=== PATIENT | female | born 1960 | race Caucasian/White ===

== ENCOUNTER 2016-11-10 15:14 | Emergency (ER) | payer OTHER ==
--- NOTE | 2016-11-10 15:27 | ED CLINICAL REPORT ---
Clinical Report - Physicians/Mid Levels [facility] [address] [place] [address] 11/10/2016 15:15 Patient: TASH REYNOSO Time Seen: 1515; initial patient contact, initial documentation, patient care assumed. Arrived- By private vehicle. Historian- patient. HISTORY OF PRESENT ILLNESS Chief Complaint: ABDOMINAL PAIN. At its maximum, severity described as severe. When seen in the E.D., severity described as severe. It is described as "pain" and it is described as located in the right upper quadrant, right abdomen and right lower quadrant and radiating to the right hip and thigh. This started years ago and is still present. No nausea, loss of appetite, vomiting or diarrhea. No recent travel. Similar symptoms previously: Chronically, as bad. Recent medical care: The patient was seen recently at another facility in the emergency department. ( was seen at [facility] this [place], dc from there around [id number], used [employer] to get home, went home, didn't take any of her meds, called 911 and now back for abd pain). REVIEW OF SYSTEMS No constipation, black stools, hematemesis, difficulty with urination or pain with urination. No urinary frequency, bloody stools or fever. All systems otherwise negative, except as recorded above. PAST HISTORY See nurses notes. PROBLEMS: Seizures . Blood clots. Sroke . --15:29 Nica Mclaughlin RMaryanne. ADDITIONAL SURGERIES: IVC filter for clots . --15:29 Nica Mclaughlin RMaryanne. SOCIAL HISTORY Smoker - current status unknown. No alcohol use or drug use. No recent travel. Is a local resident. FAMILY HISTORY Negative. ADDITIONAL NOTES The nursing notes have been reviewed with agreement regarding the chief complaint, HPI, ROS, PMH and patient medications and allergies. PHYSICAL EXAM Appearance: Alert. Oriented X3. No acute distress. Eyes: Pupils equal, round and reactive to light. Eyes normal inspection. Neck: Normal inspection. Neck supple. CVS: Normal heart rate and rhythm. Heart sounds normal. Pulses normal. Respiratory: No respiratory distress. Breath sounds normal. Chest nontender. Abdomen: Soft and nontender. Bowel sounds normal. No organomegaly. No mass. Back: Normal inspection. Skin: Skin warm and dry. Normal skin color. No rash. Normal skin turgor. Extremities: Extremities exhibit normal ROM. No lower extremity edema. Neuro: Oriented X 3. No motor deficit. No sensory deficit. PROGRESS AND PROCEDURES Course of Care: pt has her papers from [facility] with her, full work done, including labs and ct, has appt 11/12 with pcp for f/u 15:46 11/10/16. pt has hermes for frequent large doses of narcs, see report for full details, last rx 11/02 #84 hydrocodone 7.5mg. Patient counseled in person regarding the patient's stable condition and diagnosis. 15:26. Differential Diagnosis: I considered gastritis, gastroenteritis, peptic ulcer disease, acute appendicitis, diverticulitis, colon cancer, adhesions, biliary colic, cholecystitis, cholelithiasis, hepatitis, pancreatitis, urinary tract infection, ureterolithiasis and viral syndrome as a possible cause of abdominal pain in this patient. This is a partial list of diagnoses considered. (substance abuse, chronic abd pain). Above considerations are based on history and physical exam. Differential diagnosis was discussed with patient. Disposition: Discharged home in good and unchanged condition (15:26). Condition: good and stable. CLINICAL IMPRESSION Chronic generalized abdominal pain of undetermined cause. INSTRUCTIONS Warnings: GENERAL WARNINGS: Return or contact your physician immediately if your condition worsens or changes unexpectedly, if not improving as expected, or if other problems arise. SPECIFICALLY, return if you develop pain in the abdomen or pelvis, fever, the inability to keep fluids down, blood in vomitus, blood in diarrhea, fainting or lightheadedness. Follow-up: Follow up with your doctor Tuesday as scheduled even if well. Summary of care provided to patient. Understanding of the discharge instructions verbalized by patient. (Electronically signed by Giovanna Mccarthy A.R.N.P. 11/10/2016 17:47)
--- NOTE | 2016-11-10 15:27 | ED CLINICAL REPORT ---
Clinical Report - Physicians/Mid Levels [facility] [address] [place] [address] 11/10/2016 15:15 Patient: TASH REYNOSO Time Seen: 1515; initial patient contact, initial documentation, patient care assumed. Arrived- By private vehicle. Historian- patient. HISTORY OF PRESENT ILLNESS Chief Complaint: ABDOMINAL PAIN. At its maximum, severity described as severe. When seen in the E.D., severity described as severe. It is described as "pain" and it is described as located in the right upper quadrant, right abdomen and right lower quadrant and radiating to the right hip and thigh. This started years ago and is still present. No nausea, loss of appetite, vomiting or diarrhea. No recent travel. Similar symptoms previously: Chronically, as bad. Recent medical care: The patient was seen recently at another facility in the emergency department. ( was seen at [facility] this [place], dc from there around [id number], used [employer] to get home, went home, didn't take any of her meds, called 911 and now back for abd pain). REVIEW OF SYSTEMS No constipation, black stools, hematemesis, difficulty with urination or pain with urination. No urinary frequency, bloody stools or fever. All systems otherwise negative, except as recorded above. PAST HISTORY See nurses notes. PROBLEMS: Seizures . Blood clots. Sroke . --15:29 Nica Mclaughlin RMaryanne. ADDITIONAL SURGERIES: IVC filter for clots . --15:29 Nica Mclaughlin RMaryanne. SOCIAL HISTORY Smoker - current status unknown. No alcohol use or drug use. No recent travel. Is a local resident. FAMILY HISTORY Negative. ADDITIONAL NOTES The nursing notes have been reviewed with agreement regarding the chief complaint, HPI, ROS, PMH and patient medications and allergies. PHYSICAL EXAM Appearance: Alert. Oriented X3. No acute distress. Eyes: Pupils equal, round and reactive to light. Eyes normal inspection. Neck: Normal inspection. Neck supple. CVS: Normal heart rate and rhythm. Heart sounds normal. Pulses normal. Respiratory: No respiratory distress. Breath sounds normal. Chest nontender. Abdomen: Soft and nontender. Bowel sounds normal. No organomegaly. No mass. Back: Normal inspection. Skin: Skin warm and dry. Normal skin color. No rash. Normal skin turgor. Extremities: Extremities exhibit normal ROM. No lower extremity edema. Neuro: Oriented X 3. No motor deficit. No sensory deficit. PROGRESS AND PROCEDURES Course of Care: pt has her papers from [employer] with her, full work done, including labs and ct, has appt 11/12 with pcp for f/u 15:46 11/10/16. pt has hermes for frequent large doses of narcs, see report for full details, last rx 11/02 #84 hydrocodone 7.5mg. Patient counseled in person regarding the patient's stable condition and diagnosis. 15:26. Differential Diagnosis: I considered gastritis, gastroenteritis, peptic ulcer disease, acute appendicitis, diverticulitis, colon cancer, adhesions, biliary colic, cholecystitis, cholelithiasis, hepatitis, pancreatitis, urinary tract infection, ureterolithiasis and viral syndrome as a possible cause of abdominal pain in this patient. This is a partial list of diagnoses considered. (substance abuse, chronic abd pain). Above considerations are based on history and physical exam. Differential diagnosis was discussed with patient. Disposition: Discharged home in good and unchanged condition (15:26). Condition: good and stable. CLINICAL IMPRESSION Chronic generalized abdominal pain of undetermined cause. INSTRUCTIONS Warnings: GENERAL WARNINGS: Return or contact your physician immediately if your condition worsens or changes unexpectedly, if not improving as expected, or if other problems arise. SPECIFICALLY, return if you develop pain in the abdomen or pelvis, fever, the inability to keep fluids down, blood in vomitus, blood in diarrhea, fainting or lightheadedness. Follow-up: Follow up with your doctor Tuesday as scheduled even if well. Summary of care provided to patient. Understanding of the discharge instructions verbalized by patient. (Electronically signed by Giovanna Mccarthy A.R.N.P. 11/10/2016 17:47)
--- NOTE | 2016-11-10 15:27 | ED NURSING NOTES ---
Clinical Report - Nurses [place] [address] [place] [address] 11/10/2016 15:15 Patient: TASH REYNOSO TRIAGE Triage time 1500. Acuity: LEVEL 3. Chief Complaint: ABDOMINAL PAIN and (PAIN IN LT LOWER LEG AND UNABLE TO MOVE RT LEG.). Alert. No acute distress. SEPSIS SCREEN: Sepsis Screen: negative. Negative (no infection suspected/documented). ENRIQUE COMA SCORE: Enrique Coma Scale: 15- eyes open spontaneously (4); best verbal response- oriented x 4 (5); best motor response- obeys commands (6). --15:34 Nica Mclaughlin R.N. 15:11 11/10/16. BP: 133/74. HR: 70. RR: 20. O2 saturation: 98% on room air. Temp: 98.4 F. Pain level now: 06/16. --15:34 Nica Mclaughlin R.N. Weight: 104.7 kg stated. Height/Length: 67 inches Per Patient. BMI: 36.2. --15:33 Nica Mclaughlin R.N. Medications Atorvastatin Calcium Oral 40 mg, daily. --15:15 Nica Mclaughlin R.N. Cholecalciferol Oral (Tablet 1000 unit) 1 tablet, day. --15:15 Nica Mclaughlin R.N. Docusate Sodium Oral, day. --15:17 Nica Mclaughlin R.N. Fish oil 1000mg day. --15:18 Nica Mclaughlin R.N. Furosemide Oral 20 mg, daily. --15:20 Nica Mclaughlin R.N. Hydrocodone-Acetaminophen Oral 5 mg, as needed. --15:21 Nica Mclaughlin R.N. LamoTRIgine Oral (Tablet Dispersible 100 mg) 2 tablets, bid . --15:21 Nica Mclaughlin R.N. LevETIRAcetam Oral 500 mg x 3 tabs , 2x a day. --15:22 Nica Mclaughlin R.N. Lidocaine patches 4 % to knee . --15:23 Nica Mclaughlin R.N. Imodium 2 caps after diarrhea stool . --15:23 Nica Mclaughlin R.N. Loratadine Oral 10mg day . --15:24 Nica Mclaughlin R.N. LORazepam Oral 0.5 mg, 3x a day. --15:24 Nica Mclaughlin R.N. Magnesium oxide 400mg day. --15:24 Nica Mclaughlin R.N. Miralax prn. --15:25 Nica Mclaughlin R.N. Potassium Chloride Oral 10 meq, daily. --15:25 Nica Mclaughlin R.N. Senna Oral (Tablet 8.6 mg) 1 tablet, day. --15:26 Nica Mclaughlin R.N. Sertraline HCl Oral (Tablet 50 mg) 2 tablets, daily. --15:26 Nica Mclaughlin R.N. Tamsulosin HCl Oral 0.4 mg, daily. --15:27 Nica Mclaughlin R.N. TraZODone HCl Oral 50 mg, daily. --15:27 Nica Mclaughlin R.N. Warfarin 5mg day . --15:27 Nica Mclaughlin R.N. Medication/allergy information source: the patient. --15:34 Nica Mclaughlin R.N. Allergies No Known Drug Allergy. --15:27 Nica Mclaughlin R.N. History Arrived by EMS. Historian: patient. Primary physician (GREY). This started today. Onset. (Dc from [place] this am.). She has had abdominal pain. 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 PAST MEDICAL HX: Immunizations: status is unknown. Last normal menstrual period unknown. SOCIAL HX: No alcohol use or drug use. FALL RISK ASSESSMENT: Fall risk assessment completed. No fall risk identified. NUTRITIONAL RISK ASSESSMENT: The nutritional risk assessment revealed no deficiencies. FUNCTIONAL ASSESSMENT: Functional assessment: no impairments noted. LEARNING NEEDS ASSESSMENT: The learning needs assessment revealed no barriers. SKIN INTEGRITY ASSESSMENT: Skin integrity risk assessment completed. No skin integrity risk identified. --15:34 Nica Mclaughlin R.N. PROBLEMS: Seizures . Blood clots. Sroke . --15:29 Nica Mclaughlin R.N. ADDITIONAL SURGERIES: IVC filter for clots . --15:29 Nica Mclaughlin R.N. Interventions ID band on patient. To room. --15:34 Nica Mclaughlin R.N. PHYSICAL ASSESSMENT To room via stretcher. Patient gowned. GENERAL / NEURO / PSYCH: Alert. Oriented X 4. Appears in no acute distress. Appears anxious. HEENT: Mucous membranes are pink. RESPIRATORY: Respirations not labored. CVS: Capillary refill less than 2 seconds. GI / : Abdominal tenderness in the right lower quadrant. SKIN: Skin is warm and dry. --15:34 Nica Mclaughlin R.N. NURSING PROGRESS NOTES Patient gowned. Head of bed elevated. Two patient identifiers checked. Call light placed in reach. Side rails up x 2. Bed placed in lowest position. Brakes of bed on. Patient ready for evaluation. --15:34 Nica Mclaughlin R.N. DISPOSITION / DISCHARGE 16:00. Condition at departure: improved. No learning barriers present. Discharge instructions provided and reviewed with the patient. Patient verbalized understanding. Written instructions provided in Luxembourgish. The patient was discharged home and accompanied by metabolic specialist. She left the Emergency Department in a wheelchair and via (Patient to call [employer] link). Medication list reviewed and validated. --16:48 Nica Mclaughlin R.N. 15:11 11/10/16. BP: 133/74. HR: 70. RR: 20. O2 saturation: 98% on room air. Temp: 98.4 F. Pain level now: 8/10. --16:48 Nica Mclaughlin R.N. Locked/Released at 11/10/2016 16:49 by Nica Mclaughlin R.N.
--- NOTE | 2016-11-10 15:27 | ED NURSING NOTES ---
Clinical Report - Nurses [place] [address] [place] [address] 11/10/2016 15:15 Patient: TASH REYNOSO TRIAGE Triage time 1500. Acuity: LEVEL 3. Chief Complaint: ABDOMINAL PAIN and (PAIN IN LT LOWER LEG AND UNABLE TO MOVE RT LEG.). Alert. No acute distress. SEPSIS SCREEN: Sepsis Screen: negative. Negative (no infection suspected/documented). ENRIQUE COMA SCORE: Enrique Coma Scale: 15- eyes open spontaneously (4); best verbal response- oriented x 4 (5); best motor response- obeys commands (6). --15:34 Nica Mclaughlin R.N. 15:11 11/10/16. BP: 133/74. HR: 70. RR: 20. O2 saturation: 98% on room air. Temp: 98.4 F. Pain level now: 06/16. --15:34 Nica Mclaughlin R.N. Weight: 104.7 kg stated. Height/Length: 67 inches Per Patient. BMI: 36.2. --15:33 Nica Mclaughlin R.N. Medications Atorvastatin Calcium Oral 40 mg, daily. --15:15 Nica Mclaughlin R.N. Cholecalciferol Oral (Tablet 1000 unit) 1 tablet, day. --15:15 Nica Mclaughlin R.N. Docusate Sodium Oral, day. --15:17 Nica Mclaughlin R.N. Fish oil 1000mg day. --15:18 Nica Mclaughlin R.N. Furosemide Oral 20 mg, daily. --15:20 Nica Mclaughlin R.N. Hydrocodone-Acetaminophen Oral 5 mg, as needed. --15:21 Nica Mclaughlin R.N. LamoTRIgine Oral (Tablet Dispersible 100 mg) 2 tablets, bid . --15:21 Nica Mclaughlin R.N. LevETIRAcetam Oral 500 mg x 3 tabs , 2x a day. --15:22 Nica Mclaughlin R.N. Lidocaine patches 4 % to knee . --15:23 Nica Mclaughlin R.N. Imodium 2 caps after diarrhea stool . --15:23 Nica Mclaughlin R.N. Loratadine Oral 10mg day . --15:24 Nica Mclaughlin R.N. LORazepam Oral 0.5 mg, 3x a day. --15:24 Nica Mclaughlin R.N. Magnesium oxide 400mg day. --15:24 Nica Mclaughlin R.N. Miralax prn. --15:25 Nica Mclaughlin R.N. Potassium Chloride Oral 10 meq, daily. --15:25 Nica Mclaughlin R.N. Senna Oral (Tablet 8.6 mg) 1 tablet, day. --15:26 Nica Mclaughlin R.N. Sertraline HCl Oral (Tablet 50 mg) 2 tablets, daily. --15:26 Nica Mclaughlin R.N. Tamsulosin HCl Oral 0.4 mg, daily. --15:27 Nica Mclaughlin R.N. TraZODone HCl Oral 50 mg, daily. --15:27 Nica Mclaughlin R.N. Warfarin 5mg day . --15:27 Nica Mclaughlin R.N. Medication/allergy information source: the patient. --15:34 Nica Mclaughlin R.N. Allergies No Known Drug Allergy. --15:27 Nica Mclaughlin R.N. History Arrived by EMS. Historian: patient. Primary physician (GREY). This started today. Onset. (Dc from [place] this am.). She has had abdominal pain. 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 PAST MEDICAL HX: Immunizations: status is unknown. Last normal menstrual period unknown. SOCIAL HX: No alcohol use or drug use. FALL RISK ASSESSMENT: Fall risk assessment completed. No fall risk identified. NUTRITIONAL RISK ASSESSMENT: The nutritional risk assessment revealed no deficiencies. FUNCTIONAL ASSESSMENT: Functional assessment: no impairments noted. LEARNING NEEDS ASSESSMENT: The learning needs assessment revealed no barriers. SKIN INTEGRITY ASSESSMENT: Skin integrity risk assessment completed. No skin integrity risk identified. --15:34 Nica Mclaughlin R.N. PROBLEMS: Seizures . Blood clots. Sroke . --15:29 Nica Mclaughlin R.N. ADDITIONAL SURGERIES: IVC filter for clots . --15:29 Nica Mclaughlin R.N. Interventions ID band on patient. To room. --15:34 Nica Mclaughlin R.N. PHYSICAL ASSESSMENT To room via stretcher. Patient gowned. GENERAL / NEURO / PSYCH: Alert. Oriented X 4. Appears in no acute distress. Appears anxious. HEENT: Mucous membranes are pink. RESPIRATORY: Respirations not labored. CVS: Capillary refill less than 2 seconds. GI / : Abdominal tenderness in the right lower quadrant. SKIN: Skin is warm and dry. --15:34 Nica Mclaughlin R.N. NURSING PROGRESS NOTES Patient gowned. Head of bed elevated. Two patient identifiers checked. Call light placed in reach. Side rails up x 2. Bed placed in lowest position. Brakes of bed on. Patient ready for evaluation. --15:34 Nica Mclaughlin R.N. DISPOSITION / DISCHARGE 16:00. Condition at departure: improved. No learning barriers present. Discharge instructions provided and reviewed with the patient. Patient verbalized understanding. Written instructions provided in Azeri. The patient was discharged home and accompanied by sr. payroll manager. She left the Emergency Department in a wheelchair and via (Patient to call [employer] link). Medication list reviewed and validated. --16:48 Nica Mclaughlin R.N. 15:11 11/10/16. BP: 133/74. HR: 70. RR: 20. O2 saturation: 98% on room air. Temp: 98.4 F. Pain level now: 8/10. --16:48 Nica Mclaughlin R.N. Locked/Released at 11/10/2016 16:49 by Nica Mclaughlin R.N.
--- NOTE | 2016-11-10 17:47 | ED DISCHARGE INSTRUCTIONS ---
Patient: TASH REYNOSO General Instructions [facility] VisitID: [id number] [place] [address] 56y, F Registration Date/Time: 11/10/2016 Chronic generalized abdominal pain of undetermined cause. INSTRUCTIONS Warnings: GENERAL WARNINGS: Return or contact your physician immediately if your condition worsens or changes unexpectedly, if not improving as expected, or if other problems arise. SPECIFICALLY, return if you develop pain in the abdomen or pelvis, fever, the inability to keep fluids down, blood in vomitus, blood in diarrhea, fainting or lightheadedness. Follow-up: Follow up with your doctor Tuesday as scheduled even if well. Summary of care provided to patient. Understanding of the discharge instructions verbalized by patient. ADDITIONAL INFORMATION Abdominal Pain, Unknown Cause (Female) The exact cause of your abdominal (stomach) pain is not certain. This does not mean that this is something to worry about, or the right tests were not done. Everyone likes to know the exact cause of the problem, but sometimes with abdominal pain, there is no clear-cut cause, and this could be a good thing. The good news is that your symptoms can be treated, and you will feel better. Your condition does not seem serious now; however, sometimes the signs of a serious problem may take more time to appear. For this reason,it is important for you to watch for any new symptoms, problems,or worsening of your condition. Over the next few days, the abdominal pain may come and go, or be continuous. Other common symptoms can include nausea and vomiting. Sometimes it can be difficult to tell if you feel nauseous, you may just feel bad and not associate that feeling with nausea. Constipation, diarrhea, and a fever may go along with the pain. The pain may continue even if treated correctly over the following days. Depending on how things go, sometimes the cause can become clear and may require further or different treatment. Additional evaluations, medications, or tests may be needed. Home care Your health care provider may prescribe medications for pain, symptoms, or an infection. Follow the health care provider's instructions for taking these medications. General care Rest until your next exam. No strenuous activities. Try to find positions that ease discomfort. A small pillow placed on the abdomen may help relieve pain. Something warm on your abdomen (such as a heating pad) may help, but be careful not to burn yourself. Diet Do not force yourself to eat, especially if having cramps, vomiting, or diarrhea. Water is important so you do not get dehydrated. Soup may also be good. Sports drinks may also help, especially if they are not too acidic. Make sure you don't drink sugary drinks as this can make things worse. Take liquids in small amounts. Do not guzzle them. Caffeine sometimes makes the pain and cramping worse. Avoid dairy products if you have vomiting or diarrhea. Don't eat large amounts at a time. Wait a few minutes between bites. Eat a diet low in fiber (called a low-residue diet). Foods allowed include refined breads, white rice, fruit and vegetable juices without pulp, tender meats. These foods will pass more easily through the intestine. Avoid whole-grain foods, whole fruits and vegetables, meats, seeds and nuts, fried or fatty foods, dairy, alcohol and spicy foods until your symptoms go away. Follow-up care Follow up with your health care provider as instructed, or if your pain does not begin to improve in the next 24 hours. When to seek medical care Seek prompt medical care if any of the following occur: Pain gets worse or moves to the right lower abdomen New or worsening vomiting or diarrhea Swelling of the abdomen Unable to pass stool for more than three days Fever of 100.4F (38C) or higher, or as directed by your healthcare provider. Blood in vomit or bowel movements (dark red or black color) Jaundice (yellow color of eyes and skin) Weakness, dizziness Chest, arm, back, neck or jaw pain Unexpected vaginal bleeding or missed period Call 911 Call emergency services if any of the following occur: Trouble breathing Confusion Fainting or loss of consciousness Rapid heart rate Seizure You have been given the following additional information: Abdominal Pain, Unknown Cause, (Female) (Electronically signed by Giovanna Mccarthy A.R.N.P. 11/10/2016 17:47)
--- NOTE | 2016-11-10 17:47 | ED MAR SUMMARY ---
..... Medication Administration Record [facility] [address] [place] [id number] Patient: TASH REYNOSO Visit ID: [id number] 56y, F Weight: 104.7 kg Height/Length: 67 in BMI: 36.2 ALLERGIES: No Known Drug Allergy
--- NOTE | 2016-11-10 17:47 | ED MED RECONCILIATION SUMMARY ---
Patient: TASH REYNOSO Medication Reconciliation Report [facility] VisitID: [id number] [address] [place] [address] 56y, F Registration Date/Time: 11/10/2016 Weight: 104.7 kg Height/Length: 67 in. BMI: 36.2 ALLERGIES: No Known Drug Allergy The patient's Home Medications are listed below: THE FOLLOWING MEDICATIONS NEED TO BE RECONCILED: Atorvastatin Calcium Oral 40 mg, daily Cholecalciferol Oral (1000 unit) 1 tablet, day Docusate Sodium Oral, day Fish oil 1000mg day Furosemide Oral 20 mg, daily Hydrocodone-Acetaminophen Oral 5 mg Imodium 2 caps after diarrhea stool LamoTRIgine Oral (100 mg) 2 tablets, bid LevETIRAcetam Oral 500 mg x 3 tabs , 2x a day Lidocaine patches 4 % to knee Loratadine Oral 10mg day LORazepam Oral 0.5 mg, 3x a day Magnesium oxide 400mg day Miralax prn Potassium Chloride Oral 10 meq, daily Senna Oral (8.6 mg) 1 tablet, day Sertraline HCl Oral (50 mg) 2 tablets, daily Tamsulosin HCl Oral 0.4 mg, daily TraZODone HCl Oral 50 mg, daily Warfarin 5mg day The source(s) of the original Home Medication information: patient The following Medications were given to the patient in the Emergency Department: None. The following Medications were prescribed to the patient: None.
--- NOTE | 2016-11-10 17:47 | ED MAR SUMMARY ---
..... Medication Administration Record [facility] [address], [place] [id number] Patient: TASH REYNOSO Visit ID: [id number] 56y, F Weight: 104.7 kg Height/Length: 67 in BMI: 36.2 ALLERGIES: No Known Drug Allergy
--- NOTE | 2016-11-10 17:47 | ED MED RECONCILIATION SUMMARY ---
Patient: TASH REYNOSO Medication Reconciliation Report [facility] VisitID: [id number] [place] [address] 56y, F Registration Date/Time: 11/10/2016 Weight: 104.7 kg Height/Length: 67 in. BMI: 36.2 ALLERGIES: No Known Drug Allergy The patient's Home Medications are listed below: THE FOLLOWING MEDICATIONS NEED TO BE RECONCILED: Atorvastatin Calcium Oral 40 mg, daily Cholecalciferol Oral (1000 unit) 1 tablet, day Docusate Sodium Oral, day Fish oil 1000mg day Furosemide Oral 20 mg, daily Hydrocodone-Acetaminophen Oral 5 mg Imodium 2 caps after diarrhea stool LamoTRIgine Oral (100 mg) 2 tablets, bid LevETIRAcetam Oral 500 mg x 3 tabs , 2x a day Lidocaine patches 4 % to knee Loratadine Oral 10mg day LORazepam Oral 0.5 mg, 3x a day Magnesium oxide 400mg day Miralax prn Potassium Chloride Oral 10 meq, daily Senna Oral (8.6 mg) 1 tablet, day Sertraline HCl Oral (50 mg) 2 tablets, daily Tamsulosin HCl Oral 0.4 mg, daily TraZODone HCl Oral 50 mg, daily Warfarin 5mg day The source(s) of the original Home Medication information: patient The following Medications were given to the patient in the Emergency Department: None. The following Medications were prescribed to the patient: None.
== END 2016-11-10 16:00 | disposition home or self-care (01) ==
LOC: ED SRH 15:14
DX: R10.84 Generalized abdominal pain (principal); F17.200 Nicotine dependence, unspecified, uncomplicated; Z79.01 Long term (current) use of anticoagulants